=== PATIENT | female | born 1950 | race Caucasian/White ===

== ENCOUNTER → 2017-01-24 | Outpatient (CLI) | payer OTHER, BC | LOC: BHFA 11:30 | PROVIDERS: ATTEND Internal Medicine Interventional Cardiology | DX: E78.5 Hyperlipidemia, unspecified (principal); Z95.0 Presence of cardiac pacemaker ==

== ENCOUNTER → 2017-12-29 | Outpatient (CLI) | payer OTHER, BC | DX: R60.0 Localized edema (principal); E78.5 Hyperlipidemia, unspecified; Z95.0 Presence of cardiac pacemaker ==